=== PATIENT | male | born 2000 | race Caucasian/White ===

== ENCOUNTER 2024-10-04 10:37 | Emergency (ER) | payer OTHER, SELFPAY ==
--- NOTE | 2024-10-04 10:38 | ED.UPPEXIN ---
HPI - Extremity Injury (Upper) General Chief Complaint: Extremity Injury, Upper Stated Complaint: Right shoulder Time Seen by Provider: 10/04/24 10:38 Source: patient Mode of arrival: ambulatory Limitations: no limitations History of Present Illness HPI narrative: Sivakumar is a 23-year-old male patient presenting to the clinic today with complaints of right shoulder pain for the past 2-3 days. He reports he was at work today and is having a lot of pain in his shoulder was popping. History of chronic intermittent right shoulder pain ever since he had his shoulder dislocated when he was 18. States that the shoulder was put back in place by a medical professional and there was no fracture at that time. He has full range of motion of the right shoulder but it pops and is painful over the anterior shoulder joint. Pain does radiate down into elbow/wrist/hand at times. Related Data Allergies Allergy/AdvReac Type Severity Reaction Status Date / Time No Known Allergies Allergy Unverified 10/04/24 10:51 Review of Systems Review of Systems: Pertinent positives per HPI. Patient denies any fever, chills, rash, headache, visual changes, dizziness, cough, runny nose, sore throat, shortness of breath, chest pain, palpitations, nausea, vomiting, diarrhea, constipation, abdominal pain, or any urinary issues. PMFSH Comments At the time of my signature, I reviewed and agree with the nursing past medical, surgical, social, and family history. There is no relevant family history pertinent to the patient complaint. Exam Narrative: General: Well-developed, well nourished, in no apparent distress Head: Normocephalic, atraumatic. Cardio: Regular rate and rhythm, s1 and s2 normal, no murmur appreciated. Resp: Clear to auscultation bilaterally, no rhonchi, rales, wheezing or rubs. Musculoskeletal: No deformity, anterior shoulder tender to palpation over the supraspinatus tendon/deltoid muscle, drop-arm test negative, pain with raising arm above head, pain with full can and empty can testing, pain with cross-arm testing, pain and limited range of motion with posterior reach otherwise grossly normal range of motion, muscle strength strong and equal, peripheral pulse strong, no edema, no cyanosis, normal gait and station Course Course Emergency Course: Portions of this record may have been created with voice recognition software. Level of Care: Express Care Visit Vital Signs Vital signs: Vital signs reviewed MDM - Extremity Injury (Upper) MDM Narrative Medical decision making narrative: At the time of visit patient is resting comfortably on the exam table. Patient appears to be nontoxic. Complaints of right shoulder pain for the past 2-3 days. He reports he was at work today and is having a lot of pain in his shoulder was popping. History of chronic intermittent right shoulder pain ever since he had his shoulder dislocated when he was 18. States that the shoulder was put back in place by a medical professional and there was no fracture at that time. He has full range of motion of the right shoulder but it pops and is painful over the anterior shoulder joint/over the supraspinatus tendon. Pain does radiate down into elbow/wrist/hand at times. Patient has not had any recent injury not feel as though an x-ray is necessary at this time. Plan: I suspect patient has chronic right shoulder pain with tendinitis. Prescription for Medrol Dosepak was sent to the pharmacy. Work note was given. Supportive measures were discussed with the patient and they voiced understanding discharge instructions and agrees to treatment plan. Return precautions reviewed Differential Diagnosis Differential diagnosis: Likely dislocation of shoulder, fracture of humerus, fracture of clavicle and other (Contusion, soft tissue injury, shoulder strain) Discharge Plan Discharge Clinical Impression: Right shoulder tendinitis, Chronic pain in right shoulder Patient Disposition: Home Condition: Stable Instructions: Antibiotic Form, Tendinitis (ED), Shoulder Pain (ED) Additional Instructions: I suspect you have right shoulder tendinitis. Take Medrol Dosepak as prescribed. May use heat or ice to the affected area May use blue emu, lidocaine patches, or asper cream to affected area- do not apply heat or ice directly over cream- can cause burn. Complete appropriate shoulder stretching exercises. Follow up with your PCP in 3-5 days if symptom persist. Follow-up with Dr. Oakley- orthopaedic- call office to schedule an appointment Patient Language: Solomon Islander Prescriptions: New methylprednisolone [Medrol (Celestino)] 4 mg tablets,dose pack See Rx Instructions PO .COMPLEX Qty: 21 0RF Rx Instructions: orally per package directions Follow-up/Referrals: Huang Oakley MD [Physician] - 1 Day (Chronic right shoulder pain-suspected right shoulder tendinitis) UNKNOWN,DOCTOR [Non-Staff] - Stand Alone Forms: Work/School Release IP Time of Disposition: 10:55 Quality NIHSS Nursing Documentation ED NIHSS nursing documentation: reviewed/agree
[2024-10-04 10:46] VITALS: BP 147/85; PULSE 96; RESP 16; TEMP 37.2; O2SAT 100
--- OUTSIDE RECORDS SUMMARY | 2024-10-04 10:48 | XMS_ITS | Clinical Summary ---
Author Organization [facility] Address [address] [place] [address] Care Team Providers Care Cassandra Developer Name Role Phone Phil West MD Primary Care Provider [phone] Source Comments [facility],non-owned Affiliates and Associated Physician Practices is amultiple site organization consisting of ambulatory clinics and hospital sitesin [place], [place], [place] and [place]. This disclosure is being madepursuant to the Care Everywhere program and may not contain all information available regarding this patient. Last updated 17.[facility] Allergies No known active allergies Medications * Be aware that medications may not be up to date on this document. Alwaysverify current medications with the patient. 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 Gender Identity Not on file Sexual Orientation Not on file Plan of Treatment Health Maintenance Due Date Last Done Comments HIV SCREENING 10/12/2015 HPV VACCINE (1 - Male 3-dose series) 10/12/2015 MENINGOCOCCAL (Group B) VACC INE SHARED DECISION-MAKING (1 of 2 - Standard) 2016 HEPATITIS C SCREENING 10/07/2018 DTAP/TDAP/TD VACCINES (1 - Tdap) 10/12/2019 HEPATITIS B VACCINE (1 of 3 - 19+ 3-dose series) 10/12/2019 COVID-19 VACCINE (1 - 2023-2 5 season) 2023 DEPRESSION SCREENING 02/23/2024 INFLUENZA VACCINE (#1) 2024 ZOSTER VACCINE (1 of 2) 2050 HIB VACCINE Aged Out No longer eligi ble based on patient's age to complete this topic MENINGOCOCCAL GROUPS A/C/Y/W VACCINE Aged Out No longer eligible b ased on patient's age to complete this topic PNEUMOCOCCAL VACCINE Aged Out No long er eligible based on patient's age to complete this topic Care Teams Cassandra Developer Relationship Specialty Start Date End Date Phil West MD [address] [place] [address] [phone] PCP - General 04/16/10
== END 2024-10-04 11:05 | disposition home or self-care (01) ==
PROVIDERS: Emergency Provider Nurse Practitioner Family
DX: M75.81 Other shoulder lesions, right shoulder (principal); G89.29 Other chronic pain; M25.511 Pain in right shoulder
CPT/HCPCS: 99203; G0463

== ENCOUNTER 2025-01-13 08:34 | Emergency (ER) | payer OTHER, SELFPAY ==
[2025-01-13 08:40] VITALS: BP 144/88; PULSE 72; RESP 16; TEMP 36.9; O2SAT 99
--- OUTSIDE RECORDS SUMMARY | 2025-01-13 08:40 | XMS_ITS | Clinical Summary ---
Author Organization [facility] Address [address] [place] [address] Care Team Providers Care Linoleum Printer Name Role Phone Phil West MD Primary Care Provider [phone] Source Comments [facility],non-owned Affiliates and Associated Physician Practices is amultiple site organization consisting of ambulatory clinics and hospital sitesin [place], [place], [place] and [place]. This disclosure is being madepursuant to the Care Everywhere program and may not contain all information available regarding this patient. Last updated 17.[facility] Allergies No known active allergies Medications * Be aware that medications may not be up to date on this document. Alwaysverify current medications with the patient. 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 Gender Identity Not on file Sexual Orientation Not on file Plan of Treatment Health Maintenance Due Date Last Done Comments HIV SCREENING 10/12/2015 HPV VACCINE (1 - Male 3-dose series) 10/12/2015 HEPATITIS C SCREENING 10/07/2018 DTAP/TDAP/TD VACCINES (1 - Tdap) 10/12/2019 HEPATITIS B VACCINE (1 of 3 - 19+ 3-dose series) 10/12/2019 DEPRESSION SCREENING 02/23/2024 COVID-19 VACCINE (1 - 2024-2 6 season) 2024 INFLUENZA VACCINE (#1) 2024 ZOSTER VACCINE (1 of 2) 2050 HIB VACCINE Aged Out No longer eligi ble based on patient's age to complete this topic MENINGOCOCCAL (Group B) VACC INE SHARED DECISION-MAKING Aged Out No longer eligibl e based on patient's age to complete this topic MENINGOCOCCAL GROUPS A/C/Y/W VACCINE Aged Out No longer eligible b ased on patient's age to complete this topic PNEUMOCOCCAL VACCINE Aged Out No long er eligible based on patient's age to complete this topic Care Teams Linoleum Printer Relationship Specialty Start Date End Date Phil West MD [address] [place] [address] [phone] PCP - General 04/16/10
--- NOTE | 2025-01-13 08:44 | ED.DENTAL ---
HPI - Dental/Oral General Chief complaint: Dental/Oral Stated complaint: Tooth Pain Time Seen by Provider: 01/13/25 08:46 Source: patient, RN notes reviewed and old records reviewed Mode of arrival: ambulatory Limitations: no limitations History of Present Illness HPI Narrative: 24 year old male who presents to [facility] care with complaints of dental pain to the right lower molar for the past 1 week duration.Patient reports that he has been taking Goodies powder for his pain but not relieving his pain very much.Patient reports that he can't swallow pills and request liquids. Patient does have a dental appointment on Wednesday at 1630 which was the soonest he could get an appointment. patient reports no difficulty with his breathing or swallowing, reports that is sensitive to cold liquids and is difficult to chew on right side of mouth. MD Complaint: tooth pain Location: Tooth # (29) Onset (ago): week(s) (1) Severity scale (1-10): 10 Exacerbating factors: chewing and cold Treatment prior to arrival: oral analgesic (goodies powder) Related Data Allergies Allergy/AdvReac Type Severity Reaction Status Date / Time No Known Allergies Allergy Verified 01/13/25 08:43 Review of Systems Review of Systems: CONSTITUTIONAL: Denies fever, chills, or sweats. ENT: Denies rhinorrhea, congestion, sore throat, or otalgia. Reports dental pain to #29 tooth for one week duration which has obvious caries and tooth broken some swelling of gum around tooth no obvious abscess CARDIOVASCULAR: Denies chest pain, palpitations, or edema. RESPIRATORY: Denies cough or dyspnea. SKIN: Denies rash or itching. MUSCULOSKELETAL: Denies myalgia. NEUROLOGIC: Denies headache All systems reviewed & are unremarkable except as noted in HPI and below PMFSH Past Medical History Medical History (Updated 01/13/25 @ 09:01 by Lily Christopher APRN) Fracture of thumb, right, closed Surgical History Surgical History (Updated 01/13/25 @ 08:59 by Lily Christopher APRN) [place] teeth extracted Social History Social History (Updated 01/13/25 @ 09:00 by Lily Christopher APRN) Smoking status: Current every day smoker Tobacco type: e-cigarettes/vaping Alcohol intake: current Alcohol use details: social Substance use type: does not use Living arrangements: with family Gender identity (if verbalized by the patient): Male Comments At time of signature, agree with nursing past medical, surgical, social and family history. There is no relevant family history pertinent to the presenting complaint Exam Narrative: GENERAL: Well-appearing, well-nourished, and in no acute distress. HEAD: Normocephalic, atraumatic. EYES: PERRLA and EOMI. ENT: Nares clear, no rhinorrhea or epistaxis. Mucous membranes moist. broken teeth, caries noted to the right bottom molars with pain to #28 tooth which has decay and is fractured. no facial swelling noted, no trismus noted or any Raza angina noted NECK: Supple.no lymphadenopathy CHEST: Clear to auscultation. No respiratory distress.SAO2 99% on room air HEART: Regular rate and rhythm. No murmur heard. Normal peripheral pulses. SKIN: Warm, dry, no rash. NEURO: No focal deficits. Alert and oriented x3. Course Course Emergency Course: Patient is aware of diagnosis, understands and agrees to treatment plan. Anticipatory guidance given. Patient agrees to follow-up as directed and is aware of reasons to seek care at the emergency department. Portions of this record may have been created with voice recognition software Level of Care: Express Care Visit Vital Signs Vital signs: Vital Signs Temperature 36.9 C 01/13/25 08:40 Pulse Rate 72 01/13/25 08:40 Respiratory Rate 16 01/13/25 08:40 Blood Pressure 144/88 H 01/13/25 08:40 Pulse Oximetry 99 01/13/25 08:40 Oxygen Delivery Room Air 01/13/25 08:40 Temperature 36.9 C 01/13/25 08:40 Pulse Rate 72 01/13/25 08:40 Respiratory Rate 16 01/13/25 08:40 Blood Pressure 144/88 H 01/13/25 08:40 Pulse Oximetry 99 01/13/25 08:40 Oxygen Delivery Room Air 01/13/25 08:40 Reviewed MDM - Dental/Oral MDM Narrative Medical decision making narrative: Patients pain and complaint coupled with physical findings are consistent with dentalgia. There are no focal signs of space occupying lesions that are compromising to the airway; no dysphagia, odynophagia, dysphonia, or dyspnea. No uvular deviation or soft palate edema. Patient is non-toxic appearing. The floor of the mouth is soft with no signs of Raza's Angina; no induration below mandible, no neck pain.? Patient is without trismus or drooling and able to swallow secretions.? Patient is felt appropriate for discharge home with dental follow up. Differential Diagnosis Differential diagnosis: Likely dental caries, toothache and fracture of tooth Medical Records Attestation: I reviewed the patient's medical records. Critical Care Time Critical Care Time Critical Care Time: No Discharge Plan Discharge Clinical Impression: Toothache Fracture of tooth Qualifiers: Encounter type: initial encounter Fracture type: open Qualified Code(s): S02.5XXB - Fracture of tooth (traumatic), initial encounter for open fracture Patient Disposition: Home Condition: Stable Instructions: Antibiotic Form, Toothache (ED) Additional Instructions: Avoid temperature extremes May apply heat or ice to the face Gentle brushing and flossing Antibiotic as directed Tylenol for lesser pain Use ibuprofen regularly Follow-up with the dentist as soon as possible--see the list provided If your symptoms persist, change or worsen significantly before you can contact your personal physician then please, without delay, go to the emergency department for further evaluation. Follow-up with PCP in 7-10 days or sooner if needed Follow up with PCP soon in regards to your blood pressure which is elevated above threshold for referral. Blood pressure above 120/80 may indicate pre-hypertension. 144/88 Patient Language: Faroese Prescriptions: New amoxicillin 400 mg/5 mL suspension for reconstitution 500 mg PO BID 10 Days Qty: 125 0RF Rx Instructions: take all of prescription ibuprofen 100 mg/5 mL suspension 400 mg PO QID PRN (Reason: pain) Qty: 473 0RF chlorhexidine gluconate [Peridex] 0.12 % mouthwash 15 ml mucous membrane BID Qty: 473 0RF Rx Instructions: mouthwash 2 X daily Follow-up/Referrals: PHYSICIAN,CANE FLUME FEEDING MACHINE OPERATOR [Primary Care Provider, Internal Medicine] Stand Alone Forms: Work/School Release IP Time of Disposition: 09:04 Quality [place] Coma Scale Eyes: Open Verbal: Oriented and Alert Motor: Follows Commands [place] Coma Total Score: 15
== END 2025-01-13 09:14 | disposition home or self-care (01) ==
PROVIDERS: Emergency Provider Registered Nurse
DX: S02.5XXA Fracture of tooth (traumatic), initial encounter for closed fracture (principal); X58.XXXA Exposure to other specified factors, initial encounter; F17.290 Nicotine dependence, other tobacco product, uncomplicated
CPT/HCPCS: 99213; G0463